=== PATIENT | female | born 1995 | race Caucasian/White ===

== ENCOUNTER 2018-07-04 09:48 | Emergency (ER) | payer OTHER ==
[2018-07-04] MEDS ORDERED: Naproxen TAB* 250 MG PO ONE (10:35)
--- NOTE | 2018-07-04 10:39 | ED ---
Upper Extremity Pain - HPI Summary HPI Summary: Pt is a 22 y/o female who presents to the ED s/p wrist injury. She states she was carrying a tire at work yesterday and heard a snap in her left wrist. Her hand bent backwards pretty far. Pt currently has pain 8/10 in severity, and movement brings the pain level to a 10/10. She notes occasional shooting pain into her fingers, and occasional numbness and paresthesia. Today she noticed that her hand is now swollen. Pt cannot move her fingers due to pain, and states her index finger and thumb are clamped together. She has taken Tylenol for the pain. Her menstrual periods are normal. Pt denies any fever, chills, erythema, sore throat, CP, SOB, cough, abdominal pain, N/V, dysuria, hematuria, myalgia, rash, or dizziness. - History of Current Complaint Chief Complaint: EDExtremityUpper Stated Complaint: LEFT WRIST INJURY Hx Obtained From: Patient Mechanism Of Injury: Other - Left wrist bent backwards by tire Onset/Duration: Started Days Ago - 1, Still Present Timing: Constant Severity Currently: Severe - 8/10 Pain Location: Wrist - Left Aggravating Factor(s): Movement Associated Signs & Symptoms: Positive: Swelling, Numbness/Tingling Related History: Occupational Injury - Allergies/Home Medications Allergies/Adverse Reactions: Allergies Allergy/AdvReac Type Severity Reaction Status Date / Time No Known Allergies Allergy Verified 07/04/18 10:25 PMH/Surg Hx/FS Hx/Imm Hx Endocrine/Hematology History: Denies: Hx Diabetes Cardiovascular History: Denies: Hx Hypertension Infectious Disease History: No Infectious Disease History: Denies: History Other Infectious Disease, Traveled Outside the [place] in Last 30 Days - Family History Known Family History: Negative: Hypertension, Diabetes - Social History Alcohol Use: Rare Hx Substance Use: No Substance Use Type: Reports: None Hx Tobacco Use: Yes Smoking Status (MU): Heavy Every Day Tobacco Smoker Type: Cigarettes Amount Used/How Often: 1/2 PPD Review of Systems Negative: Fever, Chills Negative: Erythema Negative: Sore Throat Negative: Chest Pain Negative: Shortness Of Breath, Cough Negative: Abdominal Pain, Vomiting, Nausea Negative: dysuria, hematuria Positive: Arthralgia - Left wrist, Decreased ROM, Edema - Left wrist. Negative : Myalgia Negative: Rash Neurological: Other - NEGATIVE: dizziness Positive: Paresthesia, Numbness All Other Systems Reviewed And Are Negative: Yes Physical Exam - Summary Physical Exam Summary: Constitutional: Well-developed, Well-nourished, Alert. (-) Distressed Skin: Warm, Dry HENT: Normocephalic; Atraumatic Eyes: Conjunctiva normal Neck: Musculoskeletal ROM normal neck. (-) JVD, (-) Stridor, (-) Tracheal deviation Cardio: Rhythm regular, rate normal, Heart sounds normal; Intact distal pulses; The pedal pulses are 2+ and symmetric. Radial pulses are 2+ and symmetric. (-) Murmur Pulmonary/Chest wall: Effort normal. (-) Respiratory distress, (-) Wheezes, (-) Rales Abd: Soft, (-) epigastric tenderness, (-) Distension, (-) Guarding, (-) Rebound Musculoskeletal: (-) Edema, no focal tenderness of left wrist, reported pain with percussion over snuffbox, finger flexion and extension was slow but able to do it, distal sensation intact, no obvious deformities Lymph: (-) Cervical adenopathy Neuro: Alert, Oriented x3 Psych: Mood and affect Normal Triage Information Reviewed: Yes Vital Signs On Initial Exam: Initial Vitals Temp Pulse Resp BP Pulse Ox 98.3 F 67 18 122/91 100 07/04/18 09:54 07/04/18 09:54 07/04/18 09:54 07/04/18 09:54 07/04/18 09:54 Vital Signs Reviewed: Yes Procedures - Splinting Left Thumb Location: Left wrist Hand-Made Type: orthoglass - 20 cm 2 inch Splint: thumb spica Pre-Proc Neuro Vasc Exam: normal Post-Proc Neuro Vasc Exam: normal Diagnostics - Vital Signs Vital Signs Temp Pulse Resp BP Pulse Ox 07/04/18 09:54 98.3 F 67 18 122/91 100 - Laboratory Lab Statement: Any lab studies that have been ordered have been reviewed, and results considered in the medical decision making process. - Radiology Wrist XR Radiology Interpretation Completed By: Radiologist Summary of Radiographic Findings: NO FRACTURE OF THE WRIST IS NOTED. ED physician reviewed radiology report. Re-Evaluation - Re-Evaluation First Eval Re-Evaluation Time: 11:10 Change: Unchanged Comment: Applied thumb spica splint. Course/Dx - Course Course Of Treatment: Pt is a 22 y/o female who presents to the ED s/p wrist injury. She states she was carrying a tire at work yesterday and heard a snap in her left wrist. Her hand bent backwards pretty far. Pt currently has pain 8/ 10 in severity, and movement brings the pain level to a 10/10. She notes occasional shooting pain into her fingers, and occasional numbness and paresthesia. Today she noticed that her hand is now swollen. Pt cannot move her fingers due to pain, and states her index finger and thumb are clamped together. Due to mild snuffbox tenderness, applied thumb spica splint in the event of an occult scaphoid injury. Final dx are left wrist tendonitis and snuffbox tenderness. Pt is discharged. - Diagnoses Provider Diagnoses: Wrist tendonitis Discharge - Sign-Out/Discharge Documenting (check all that apply): Patient Departure - Discharge - Discharge Plan Condition: Stable Disposition: HOME Prescriptions: Naproxen TAB* [Naprosyn 250 mg TAB*] 500 mg PO Q8H PRN #30 tab PRN Reason: Pain - Moderate To Severe Patient Education Materials: Tendinitis (ED) Forms: *Work Release Referrals: Wilbert Mccollum MD [Medical Doctor] - [facility] [Outside] Additional Instructions: RETURN TO THE EMERGENCY DEPARTMENT FOR CHANGING OR WORSENING SYMPTOMS - Attestation Statements Document Initiated by Scribe: Yes Documenting Scribe: Paola Riggins Provider For Whom Scribe is Documenting (Include Credential): Clarence Lehman MD Scribe Attestation: Paola Costa, scribed for Clarence Lehman MD on 07/04/18 at 1302. Status of Scribe Document: Ready
[2018-07-04 11:48] VITALS: BP 118/79
== END 2018-07-04 11:47 | disposition home or self-care (01) ==
LOC: ED 09:48
DX: M77.9 Enthesopathy, unspecified (principal); X50.9XXA Other and unspecified overexertion or strenuous movements or postures, initial encounter; Y92.9 Unspecified place or not applicable; Y99.0 Civilian activity done for income or pay; F17.210 Nicotine dependence, cigarettes, uncomplicated
CPT/HCPCS: 29125; 99282; A9270-GY

== ENCOUNTER 2018-07-17 17:26 | Emergency (ER) | payer OTHER ==
[2018-07-17 18:03] LABS: Urine Appearance Cloudy; Urine Bacteria Absent (Absent); Urine Bilirubin Negative (Negative); Urine Blood 3+ (Negative); Urine Color Yellow; Urine Glucose Negative (Negative); Urine Ketones Negative (Negative); Urine Nitrite Negative (Negative); Urine Protein 2+(100 mg/dL) (Negative); Urine Red Blood Cell 3+(>10/hpf) (Absent); Urine Specific Gravity 1.024 (1.010-1.030); Urine Urobilinogen Negative (Negative); Urine White Blood Cell 3+(>20/hpf) (Absent)
[2018-07-17] MEDS ORDERED: Sulfamethox/Trimethoprim DS 800/160* TAB PO ONE (18:31)
--- NOTE | 2018-07-17 18:32 | ED ---
GI/ HPI - HPI Summary HPI Summary: Patient complains of pain with urination starting yesterday morning with some blood noticed in urine. Denies any other symptoms, injury or pain. Medical history is none. - History of Current Complaint Chief Complaint: EDUrogenitalProblems Time Seen by Provider: 07/17/18 17:38 Stated Complaint: ABD PAIN Hx Obtained From: Patient Onset/Duration: Started Hours Ago Timing: Intermittent Severity: Mild Current Severity: Mild Pain Intensity: 0 Pain Characteristics: Burning - Allergy/Home Medications Allergies/Adverse Reactions: Allergies Allergy/AdvReac Type Severity Reaction Status Date / Time No Known Allergies Allergy Verified 07/04/18 10:25 PMH/Surg Hx/FS Hx/Imm Hx Endocrine/Hematology History: Denies: Hx Diabetes Cardiovascular History: Denies: Hx Cardiac Arrest, Hx Hypertension History: Denies: Hx Dialysis Neurological History: Denies: Hx CVA Psychiatric History: Denies: Hx Autism Infectious Disease History: No Infectious Disease History: Denies: History Other Infectious Disease, Traveled Outside the [place] in Last 30 Days - Family History Known Family History: Negative: Hypertension, Diabetes - Social History Alcohol Use: Rare Hx Substance Use: No Substance Use Type: Reports: None Hx Tobacco Use: Yes Smoking Status (MU): Heavy Every Day Tobacco Smoker Type: Cigarettes Amount Used/How Often: 1/2 PPD Review of Systems Constitutional: Negative Eyes: Negative ENT: Negative Cardiovascular: Negative Respiratory: Negative Gastrointestinal: Negative Positive: burning, hematuria Musculoskeletal: Negative Skin: Negative Neurological: Negative Psychological: Normal All Other Systems Reviewed And Are Negative: Yes Physical Exam Triage Information Reviewed: Yes Vital Signs On Initial Exam: Initial Vitals Temp Pulse Resp BP Pulse Ox 97.5 F 95 20 121/73 100 07/17/18 17:32 07/17/18 17:32 07/17/18 17:32 07/17/18 17:32 07/17/18 17:32 Vital Signs Reviewed: Yes Appearance: Positive: Well-Appearing Skin: Positive: Warm Head/Face: Positive: Normal Head/Face Inspection Eyes: Positive: Normal Neck: Positive: Supple Respiratory/Lung Sounds: Positive: Clear to Auscultation Cardiovascular: Positive: Normal Abdomen Description: Positive: Nontender Musculoskeletal: Positive: Normal Neurological: Positive: Normal Psychiatric: Positive: Normal AVPU Assessment: Alert - Irma Coma Scale Best Eye Response: 4 - Spontaneous Best Motor Response: 6 - Obeys Commands Best Verbal Response: 5 - Oriented Coma Scale Total: 15 Diagnostics - Vital Signs Vital Signs Temp Pulse Resp BP Pulse Ox 07/17/18 17:32 97.5 F 95 20 121/73 100 - Laboratory Lab Results: Lab Results 07/17/18 Range/Units 17:45 Urine Color Yellow Urine Appearance Cloudy Urine pH 5.0 (5-9) Ur Specific [place] 1.024 (1.010-1.030) Urine Protein 2+(100 mg/dl) A (Negative) Urine Ketones Negative (Negative) Urine Blood 3+ A (Negative) Urine Nitrate Negative (Negative) Urine Bilirubin Negative (Negative) Urine Urobilinogen Negative (Negative) Ur Leukocyte Esterase 3+ A (Negative) Urine WBC (Auto) 3+(>20/hpf) A (Absent) Urine RBC (Auto) 3+(>10/hpf) A (Absent) Ur Squamous Epith Cells Present A (Absent) Urine Bacteria Absent (Absent) Urine Glucose Negative (Negative) Lab Statement: Any lab studies that have been ordered have been reviewed, and results considered in the medical decision making process. GIGU Course/Dx - Course Course Of Treatment: Patient complains of pain with urination starting yesterday morning with some blood noticed in urine. Denies any other symptoms, injury or pain. Medical history is none. Physical exam is unremarkable. Vital signs within normal limits. UA positive for UTI. Rx for Bactrim - Diagnoses Provider Diagnoses: UTI (urinary tract infection) Discharge - Sign-Out/Discharge Documenting (check all that apply): Patient Departure - Discharge Plan Condition: Stable Disposition: HOME Prescriptions: Sulfamethox/Trimethoprim DS* [Bactrim DS 800/160 TAB*] 1 tab PO BID 10 Days #20 tab Patient Education Materials: Urinary Tract Infection in Women (ED) Referrals: Jess Taylor DO [Primary Care Provider] - Additional Instructions: Take antibiotics as directed. Follow-up with primary care. Return to the ED for any new or worsening symptoms - Billing Disposition and Condition Condition: STABLE Disposition: Home
--- OUTSIDE RECORDS SUMMARY | 2018-07-17 18:42 | XMS REPORT | Continuity of Care Document ---
:1995 External Reference #:[id number] Author Name Elaine Wong Care Team Providers Name Role Phone [facility]ctions Primary Care Physician Unavailable Payers Type Date Identification Numbers Payment Provider Subscriber Policy Number: [id number] Alexsander Mehta PayID: [id number] [address] [place] [address] Effective: 2018 Policy Number: [facility] Crista Mehta [id number] Group Onset: 2018 PayID: [id number] [address] [address] [place] [address] Advance Directives Description No Information Available Problems Description No Information Family History Description No Information Available Social History Type Date Description Comments Sex Unknown Tobacco Use Start: Unknown Patient is a current smoker, smokes every day Smoking Status Reviewed: 07/10/18 Patient is a current smoker, smokes every day Allergies, Adverse Reactions, Alerts Description No Known Drug Allergies Medications Description No Active Medications Immunizations Description No Information Available Vital Signs Date Vital Result Comment 07/10/2018 10:06am Weight 145.00 lb Heart Rate 62 /min BP Systolic 110 mmHg BP Diastolic 68 mmHg Respiratory Rate 16 /min Pain Level 0 O2 % BldC Oximetry 98 % Results Description No Information Available Procedures Description No Information Available Encounters Description No Information Available Plan of Treatment No Information Available
[2018-07-17 18:44] VITALS: BP 118/70
--- NOTE | 2018-07-19 16:09 | PN ---
Progress Note - Progress Note Date of Service: 07/17/18 Note: Pt. started on Bactrim 07/17 for UTI. Final urine culture today is growing e. coli susceptible to bactrim. No change in treatment needed at this time.
== END 2018-07-17 18:43 | disposition home or self-care (01) ==
LOC: ED 17:26
DX: N39.0 Urinary tract infection, site not specified (principal); B96.20 Unspecified Escherichia coli [E. coli] as the cause of diseases classified elsewhere; F17.200 Nicotine dependence, unspecified, uncomplicated
CPT/HCPCS: 81003; 81015; 87077; 87086; 87186; 99282; A9270-GY